=== PATIENT | female | born 1975 | race African-American/Black ===

== ENCOUNTER 2021-11-03 10:04 | Emergency (ER) | payer OTHER ==
[2021-11-03 11:00] LABS: Absolute Lymphocytes (CBC) 1.6 K/uL (0.7-4.9); Hematocrit 24.2 % (36.0-45.0); Lymphocytes % 25.9 % (15.3-44.8); MCV 53.1 fL (80-100); RBC Red Blood Cell Count 4.56 M/uL (3.86-4.86)
[2021-11-03 11:22] LABS: Potassium 3.5 mmol/L (3.5-5.1)
[2021-11-03 11:58] LABS: MPV 8.7 fL (7.6-11.3)
[2021-11-03 12:32] LABS: Anisocytosis 1+; Blood Morphology Comment NOTED (NOT SEEN); Hypochromasia 3+; Platelet Estimate ADEQ; Poikilocytosis 2+; Polychromasia 1+
[2021-11-03] MEDS ORDERED: ACETAMINOPHEN 325 MG TABLET ONE (12:33)
[2021-11-03] MEDS ORDERED: NA CHLORIDE 0.9% 500 ML ONE (14:08)
--- NOTE | 2021-11-03 18:15 | EDPHYS ---
Physician Documentation [facility] Name: Alina Cheney Age: 45 yrs Sex: Female : 1975 Arrival Date: 11/03/2021 Time: 10:06 Bed 15 Private MD: ED Physician Gurwinder Arellano HPI: 11/03 14:18 This 45 yrs old Black Female presents to ER via Ambulatory with complaints of Abnormal snw Lab Results. 14:18 hx of anemia, has required blood transfusion in the past. 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 LMP 10/11/21. Onset: The symptoms/episode began/occurred gradually. Severity of symptoms: At their worst the symptoms were moderate in the emergency department the symptoms are unchanged. The patient has experienced a previous episode. The patient has been recently seen by a physician: with similar presenting complaints, and apparently given a diagnosis of labs performed and showed anemia. Hbg 7.1. 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 - Social history:: Smoking status: Patient denies any tobacco usage or history of. ROS: 10:32 Eyes: Negative for injury, pain, redness, and discharge. snw 10:32 Constitutional: Positive for fatigue, malaise. 10:32 ENT: Positive for "allergies". 10:32 Cardiovascular: Negative for chest pain, edema, palpitations. 10:32 Respiratory: Negative for shortness of breath. 10:32 Abdomen/GI: Negative for abdominal pain, nausea and vomiting, black/tarry stool. 10:32 : Positive for menses x 1 week (seven days) first 1-2 days are heavy, LMP 10/11/21. Exam: 14:17 Constitutional: This is a well developed, well nourished patient who is awake, alert, snw and in no acute distress. Head/Face: Normocephalic, atraumatic. Eyes: Pupils equal round and reactive to light, extra-ocular motions intact. Lids and lashes normal. Conjunctiva and sclera are non-icteric and not injected, + pallor. Cornea within normal limits. Periorbital areas with no swelling, redness, or edema. ENT: Nares patent. No nasal discharge, no septal abnormalities noted. Tympanic membranes are normal and external auditory canals are clear. Oropharynx with no redness, swelling, or masses, exudates, or evidence of obstruction, uvula midline. Mucous membranes moist. Neck: Trachea midline, no thyromegaly or masses palpated, and no cervical lymphadenopathy. Supple, full range of motion without nuchal rigidity, or vertebral point tenderness. No Meningismus. Chest/axilla: Normal chest wall appearance and motion. Nontender with no deformity. No lesions are appreciated. Cardiovascular: Regular rate and rhythm with a normal S1 and S2. No gallops, murmurs, or rubs. Normal PMI, no JVD. No pulse deficits. Respiratory: Lungs have equal breath sounds bilaterally, clear to auscultation and percussion. No rales, rhonchi or wheezes noted. No increased work of breathing, no retractions or nasal flaring. Abdomen/GI: Soft, non-tender, with normal bowel sounds. No distension or tympany. No guarding or rebound. No evidence of tenderness throughout. Back: No spinal tenderness. No costovertebral tenderness. Full range of motion. Skin: Warm, dry with normal turgor. Normal color with no rashes, no lesions, and no evidence of cellulitis. MS/ Extremity: Pulses equal, no cyanosis. Neurovascular intact. Full, normal range of motion. Neuro: Awake and alert, GCS 15, oriented to person, place, time, and situation. Cranial nerves II-XII grossly intact. Motor strength 5/5 in all extremities. Sensory grossly intact. Cerebellar exam normal. Normal gait. Psych: Awake, alert, with orientation to person, place and time. Behavior, mood, and affect are within normal limits. Vital Signs: 10:09 BP 115 / 92; Pulse 97; Resp 15; Pulse Ox 100% on R/A; Weight 90.72 kg; Height 5 ft. 4 ss in. (162.56 cm); Pain 0/10; 10:13 Temp 98.9(O); ss 11:00 BP 118 / 64; Pulse 80; Resp 17; Temp 98.1; Pulse Ox 100% 0 lpm ; Pain 0/10; jh6 12:00 BP 110 / 70; Pulse 76; Resp 16; Pulse Ox 100% ; Pain 0/10; jh6 14:00 BP 112 / 79; Pulse 69; Resp 17; Temp 98.1(O); Pulse Ox 100% ; Pain 0/10; jh6 15:00 BP 115 / 80; Pulse 70; Resp 16; Temp 98.2; Pulse Ox 100% ; Pain 0/10; jh6 16:00 BP 116 / 74; Pulse 70; Resp 16; Temp 98.2; Pulse Ox 100% ; Pain 0/10; jh6 20:18 BP 131 / 96; Pulse 79; Resp 17; Pulse Ox 100% on R/A; ja4 10:09 Body Mass Index 34.33 (90.72 kg, 162.56 cm) Procedures: 14:17 Performed Blood transfusion. snw MDM: 10:19 Patient medically screened. snw 14:21 Data reviewed: vital signs, nurses notes. Data interpreted: Pulse oximetry: on room snw air. Counseling: I had a detailed discussion with the patient and/or guardian regarding: the historical points, exam findings, and any diagnostic results supporting the discharge/admit diagnosis, to return to the emergency department if symptoms worsen or persist or if there are any questions or concerns that arise at home. 17:44 Response to treatment: the patient's symptoms have markedly improved after treatment. snw Special discussion: Based on the history and exam findings, there is no indication for further emergent testing or inpatient evaluation. discussed iron infusions. 11/03 10:20 [facility] 11/03 10:20 Order name: Chem 7; Complete Time: 11:58 snw 11/03 10:20 Order name: CBC with Diff; Complete Time: 12:35 snw 11/03 10:32 Order name: TIBC; Complete Time: 11:58 snw 11/03 10:32 Order name: Ferritin; Complete Time: 11:58 snw 11/03 10:32 Order name: B12; Complete Time: 11:58 snw 11/03 10:35 Order name: Urine Test (obtain specimen); Complete Time: 11:48 snw 11/03 11:07 Order name: Consent for Blood Transfusion; Complete Time: 11:48 snw 11/03 11:13 Order name: Bb Add On eb 11/03 11:23 Order name: Packed RBC Leukored EDMS 11/03 12:01 Order name: Manual Differential; Complete Time: 12:35 EDMS 11/03 19:18 Order name: CBC with Diff; Complete Time: 20:29 ja4 Administered Medications: 12:35 Drug: Acetaminophen 650 mg Route: PO; jh6 Disposition: 11/04 09:08 Co-signature as Attending Physician, Gurwinder Arellano MD I agree with the assessment and kdr plan of care. Disposition Summary: 11/03/21 18:14 Discharge Ordered Location: Home snw Condition: Stable snw Diagnosis - Iron deficiency anemia, unspecified snw Followup: snw - With: Emergency Department - When: As needed - Reason: Worsening of condition Followup: snw - With: Private Physician - When: 2 - 3 days - Reason: Recheck today's complaints, Continuance of care, Re-evaluation by your physician Discharge Instructions: - Discharge Summary Sheet snw - Iron Deficiency Anemia, Adult snw - Anemia snw - Blood Transfusion, Adult snw - Iron-Rich Diet snw Forms: - Medication Reconciliation Form snw - Thank You Letter snw - Antibiotic Education snw - Prescription Opioid Use snw Signatures: Dispatcher [employer] EDMS Gurwinder Arellano MD MD kdr Waters, Shelly, FNP-C ORDER CHECKER-Csnw Mecca Trimble RN RN Catalina Robertson RN RN jh6 Corrections: (The following items were deleted from the chart) 11/03 19:20 19:19 CBC+H.LAB.BRZ ordered. EDAR EDAR
--- NOTE | 2021-11-03 18:15 | ER ---
Nurse's Notes [facility] Name: Alina Cheney Age: 45 yrs Sex: Female : 1975 Arrival Date: 11/03/2021 Time: 10:06 Bed 15 Private MD: Diagnosis: Iron deficiency anemia, unspecified Presentation: 11/03 10:09 Chief complaint: Patient states: "My doctor called me and told me that my Hgb was 7.1 I ss had been tired and that's why I went to the doctor. I've had a blood transfusion before." Denies dizziness/ sob. Coronavirus screen: Client denies travel out of the [place] in the last 14 days. Ebola Screen: Patient denies exposure to infectious person. Patient denies travel to an Ebola-affected area in the 21 days before illness onset. Initial Sepsis Screen: Does the patient meet any 2 criteria? No. Patient's initial sepsis screen is negative. Does the patient have a suspected source of infection? No. Patient's initial sepsis screen is negative. Risk Assessment: Do you want to hurt yourself or someone else? Patient reports no desire to harm self or others. Onset of symptoms is unknown. 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 - Social history:: Smoking status: Patient denies any tobacco usage or history of. Screenin:45 Abuse screen: Denies threats or abuse. Nutritional screening: No deficits noted. [facility] Tuberculosis screening: No symptoms or risk factors identified. Fall Risk None identified. Assessment: 10:45 Pain: Denies pain. [facility] 10:45 General: Appears in no apparent distress. Behavior is calm, cooperative, reported to [facility] pcp that she had been feeling tired, blood was drawn and noted that she had low h\\T\\h. 14:16 General: blood started without issue, call light in reach. . [facility] 15:00 Reassessment: No changes from previously documented assessment. General: Appears in no jh6 apparent distress. 15:00 Pain: Denies pain. jh6 16:13 Reassessment: No changes from previously documented assessment. Patient and/or family jh6 updated on plan of care and expected duration. Pain level reassessed. Patient is alert, oriented x 3, equal unlabored respirations, skin warm/dry/pink. second unit of blood started without reaction. Vital Signs: 10:09 BP 115 / 92; Pulse 97; Resp 15; Pulse Ox 100% on R/A; Weight 90.72 kg; Height 5 ft. 4 ss in. (162.56 cm); Pain 0/10; 10:13 Temp 98.9(O); ss 11:00 BP 118 / 64; Pulse 80; Resp 17; Temp 98.1; Pulse Ox 100% 0 lpm ; Pain 0/10; jh6 12:00 BP 110 / 70; Pulse 76; Resp 16; Pulse Ox 100% ; Pain 0/10; jh6 14:00 BP 112 / 79; Pulse 69; Resp 17; Temp 98.1(O); Pulse Ox 100% ; Pain 0/10; jh6 15:00 BP 115 / 80; Pulse 70; Resp 16; Temp 98.2; Pulse Ox 100% ; Pain 0/10; jh6 16:00 BP 116 / 74; Pulse 70; Resp 16; Temp 98.2; Pulse Ox 100% ; Pain 0/10; jh6 20:18 BP 131 / 96; Pulse 79; Resp 17; Pulse Ox 100% on R/A; ja4 10:09 Body Mass Index 34.33 (90.72 kg, 162.56 cm) ED Course: 10:06 Patient arrived in ED. rg4 10:09 Arm band placed on right wrist. ss 10:11 Triage completed. ss 10:13 Catalina Robertson, BELIA is Primary Nurse. jh6 10:19 Mary Stone FNP-C [facility]. snw 10:19 Gurwinder Arellano MD is Attending Physician. snw 10:44 Inserted saline lock: 20 gauge in right antecubital area, using aseptic technique. jh6 Blood collected. 10:47 No provider procedures requiring assistance completed. jh6 10:48 Placed in gown. Bed in low position. Call light in reach. Side rails up X 1. jh6 20:18 IV discontinued, intact, No redness/swelling at site. Pressure dressing applied. ja4 Administered Medications: 12:35 Drug: Acetaminophen 650 mg Route: PO; 6 Outcome: 18:14 Discharge ordered by MD. castillo 20:18 Discharged to home ambulatory. ja4 20:18 Condition: stable 20:18 Discharge instructions given to patient, Demonstrated understanding of instructions, follow-up care. 20:21 Patient left the ED. [email or web address] Signatures: Mary Stone, INSTANT PRINT OPERATOR-C INSTANT PRINT OPERATOR-Csnw Mecca Trimble, RN RN Aundrea Manzano Jennifer, RN RN 6 Lorenzo Wright RN RN ja4
[2021-11-03 20:12] LABS: Absolute Lymphocytes (CBC) 2.1 K/uL (0.7-4.9); Hematocrit 29.2 % (36.0-45.0); Lymphocytes % 24.1 % (15.3-44.8); MCV 58.1 fL (80-100); MPV 8.3 fL (7.6-11.3); RBC Red Blood Cell Count 5.02 M/uL (3.86-4.86)
[2021-11-03 22:12] VITALS: O2SAT 100
[2021-11-03 22:30] VITALS: TEMP 98.2
[2021-11-03 22:35] VITALS: BP 131/96
== END 2021-11-03 20:21 | disposition home or self-care (01) ==
LOC: ER 10:04
PROC: 30233N1 Transfusion of Nonautologous Red Blood Cells into Peripheral Vein, Percutaneous Approach (ICD-10-PCS; principal; 2021-11-03)
DX: D50.9 Iron deficiency anemia, unspecified (principal)
CPT/HCPCS: 85025 ×2; 80048; 36415; 86900; 86850; 86901; 82728; 82607; 83540; 84466; 99284; 36430; P9016 ×2; J7040